=== PATIENT | female | born 1975 | race Two or more races ===

== ENCOUNTER 2018-10-01 09:06 | Inpatient (IN) | payer MEDICAID, OTHER | END 2018-10-02 14:00 | disposition home or self-care (01) | LOC: ER 09:06 → TELE 14:11 → TELE-EAST 19:45 | DX: E87.1 Hypo-osmolality and hyponatremia (principal); E66.01 Morbid (severe) obesity due to excess calories; R65.10 Systemic inflammatory response syndrome (SIRS) of non-infectious origin without acute organ dysfunction; G40.909 Epilepsy, unspecified, not intractable, without status epilepticus; I10 Essential (primary) hypertension; Z68.43 Body mass index [BMI] 50.0-59.9, adult ==